=== PATIENT | female | born 2005 | race Caucasian/White ===

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

== ENCOUNTER 2024-08-10 19:57 | Emergency (ER) | payer OTHER, SELFPAY ==
--- NOTE | ~2024-08-10 | XR_ITS ---
XR ankle RT min 3V Ordering provider: Dinorah Rand History: . injury . Comparison: Clinical correlation None. FINDINGS: BONES: No acute fracture or dislocation. JOINT SPACES: Normal. SOFT TISSUES: Normal. IMPRESSION: No acute osseous abnormality of the right ankle. Reviewed, dictated and finalized at location A.
--- NOTE | 2024-08-10 21:34 | ED.LOWEXIN ---
HPI - Extremity Injury (Lower) General Chief Complaint: Extremity Injury, Lower Stated Complaint: right ankle injury Time Seen by Provider: 08/10/24 21:07 Source: patient Mode of arrival: wheelchair Limitations: no limitations History of Present Illness HPI Narrative: This is a 18 year old female that presents to the ER after an injury to her right ankle. Reports she was flipping on a trampoline and landed on her ankle wrong and it rolled. Reports she is unable to bear weight. Reports decreased ROM. Denies numbness. Related Data Home Medications Medication Instructions Recorded Confirmed No Home Medications 07/14/24 07/14/24 Allergies Allergy/AdvReac Type Severity Reaction Status Date / Time sulfamethoxazole Allergy Intermediate HIVES Verified 08/10/24 19:59 trimethoprim Allergy Intermediate HIVES Verified 08/10/24 19:59 Review of Systems Review of Systems: CONSTITUTIONAL: Denies fever MUSCULOSKELETAL: Reports joint pain, and myalgia. NEUROLOGIC: Denies numbness, or weakness. All systems reviewed & are unremarkable except as noted in HPI and below PMFSH Past Medical History Medical History Asthma Mood disorder Surgical History Surgical History History of adenoidectomy History of placement of ear tubes Social History Social History (Updated 07/14/24 @ 14:41 by Ying Perez MA) Smoking status: Never smoker Alcohol intake: never Substance use: never Substance use type: does not use Living arrangements: with family Gender identity (if verbalized by the patient): Female Exam Narrative: GENERAL: Well-appearing, well-nourished, and in no acute distress. HEAD: Normocephalic, atraumatic. EYES: EOMI. EXTREMITIES: Decreased active ROM in the ankle due to pain. Mild edema. Normal DP pulse. Normal sensation. SKIN: Warm, dry, no rash. NEURO: No focal deficits. Alert and oriented x3. PSYCH: Normal mood and affect Course Course Emergency Course: Patient updated on workup and agrees with plan of care Procedures Orthopedic Splinting/Casting Injury #1: Splinting/Casting Date: 08/10/24 Splinting/Casting Time: 21:41 Side: right Lower Extremity Injury Location: ankle Lower Extremity Immobilizer: Lincoln wrap Pre-Procedure Neuro Vascular Exam: normal Post-Procedure Neuro Vascular Exam: normal Other Orthopedic Equipment: crutches MDM - Extremity Injury (Lower) MDM Narrative Medical decision making narrative: Patient presents to the ER for right ankle injury sustained just prior to arrival. She is neurovascularly intact. Right ankle x-ray without acute osseous abnormalities. Patient placed in LINCOLN wrap and given crutches. She is to follow up with PCP. She was given warnings to return to the ER Differential Diagnosis Differential diagnosis: Likely ankle sprain and strain and ankle fracture Imaging Data Radiologist's impression: ITS Impressions Ankle X-Ray 08/10/24 21:03 IMPRESSION: No acute osseous abnormality of the right ankle. Critical Care Time Critical Care Time Critical Care Time: No Discharge Plan Discharge Clinical Impression: Ankle sprain Qualifiers: Encounter type: initial encounter Involved ligament of ankle: unspecified ligament Laterality: right Qualified Code(s): S93.401A - Sprain of unspecified ligament of right ankle, initial encounter Patient Disposition: Home, Self-Care Condition: Stable Instructions: Ankle Sprain (ED) Additional Instructions: Return to the ER if you experience fever, redness and swelling of your extremity, numbness or any other symptoms that are concerning to you Wear LINCOLN wrap and use crutches. No weight on the affected leg until able to bear weight without pain. Ice and elevate extremity. Pain medication as needed and directed. Follow u
[2024-08-10 21:45] VITALS: BP 124/68; PULSE 74; RESP 16; TEMP 36.6; O2SAT 98
== END 2024-08-10 21:47 | disposition home or self-care (01) ==
PROVIDERS: Emergency Provider Physician Assistant; PCP Family Medicine
DX: S93.401A Sprain of unspecified ligament of right ankle, initial encounter (principal); X50.0XXA Overexertion from strenuous movement or load, initial encounter
CPT/HCPCS: 73610; 99283

== ENCOUNTER 2024-09-23 14:15 | Outpatient (CLI) | payer OTHER, SELFPAY ==
--- NOTE | ~2024-09-23 | XR_ITS ---
EXAMINATION: XR ankle RT min 3V DATE: 09/23/2024 14:31 INDICATION: Right ankle pain. TECHNIQUE: 4 views of right ankle were obtained. COMPARISON: Right ankle radiographs 08/10/2024 FINDINGS: Alignment is normal. No fracture. There is mild osteoarthritis of talonavicular joint. IMPRESSION: 1. Mild osteoarthritis of talonavicular joint. Reviewed, dictated and finalized at location B.
== END 2024-09-23 14:16 | disposition home or self-care (01) ==
PROVIDERS: PCP Family Medicine; Visit Provider Family Medicine
DX: M19.071 Primary osteoarthritis, right ankle and foot (principal)
CPT/HCPCS: 73610

== ENCOUNTER 2025-01-27 17:15 | Emergency (ER) | payer OTHER, SELFPAY ==
--- NOTE | ~2025-01-27 | XR_ITS ---
EXAMINATION: XR chest 2V DATE: 01/27/2025 18:17 INDICATION: Cough. TECHNIQUE: Frontal and lateral views of the chest were obtained. COMPARISON: Chest 2 views 10/01/2022 FINDINGS: There is no pneumonia, pleural effusion, or pneumothorax. The heart size is normal. IMPRESSION: 1. No acute cardiopulmonary disease. Reviewed, dictated and finalized at location A. NIC TECHNICIAN
[2025-01-27 17:16] VITALS: BP 121/79; PULSE 68; RESP 16; TEMP 36.6; O2SAT 100
--- NOTE | 2025-01-27 18:00 | ECG_ITS ---
Test Date: 2025-01-27 18:27:46 Measurements Intervals [place] Rate: 70 P: 18 NM: 132 QRS: 58 QRSD: 102 T: 46 QT: 383 QTc: 414 Interpretive Statements SINUS RHYTHM INCOMPLETE RIGHT BUNDLE BRANCH BLOCK No previous ECG available for comparison Electronically Signed On 01-28-2025 13:12:05 [employer]BRUSH PAINTER by Jannette Owens M.D.
--- NOTE | 2025-01-27 18:01 | ED_ITS ---
HPI - URI/Sore Throat General Chief Complaint: Upper Respiratory Infection Stated Complaint: cough Time Seen by Provider: 01/27/25 17:55 History of Present Illness HPI Narrative: Pt presents with cough and runny nose. Pt says she had symptoms for weeks but seemed to be better then this morning had coughing spell and felt pressure on her chest and tightness and since she is going to [place] thought she should get checked out. Pt is afebrile. Related Data Allergies Allergy/AdvReac Type Severity Reaction Status Date / Time sulfamethoxazole Allergy Intermediate HIVES Verified 01/15/25 11:04 trimethoprim Allergy Intermediate HIVES Verified 01/15/25 11:04 Review of Systems Review of Systems: All systems reviewed & are unremarkable except as noted in HPI and below PMFSH Past Medical History Medical History Asthma Mood disorder Surgical History Surgical History History of placement of ear tubes History of adenoidectomy Social History Social History (Updated 01/15/25 @ 11:08 by Ivy Marley) Social History: Single Smoking status: Never smoker Second hand tobacco smoke exposure: No Alcohol intake: never Substance use: never Substance use type: does not use Do You Feel Safe in your Home?: Yes Lack of Transportation: No Lack of Food: Never True Current Housing: I Have Housing Concerned About Future Housing: No Difficulty Paying Gas/Electric Bills: No Difficulty Paying for Meds: No Currently Unemployed: No Education: Don't Know Difficulty w/ Childcare or Family Care: No Living arrangements: with family Occupation/Education: occupation 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 Gender identity (if verbalized by the patient): Female Exam 2 Const: General: healthy appearing and no acute distress Nutritional Appearance: well nourished Orientation/consciousness: patient oriented x3 Limitations: no limitations HENMT: Mouth: Yes Normal oral and palatal mucosa present Eyes: Conjunctivae: conjunctivae normal Neck: Neck: normal visual inspection Chest: Chest palpation & inspection: normal inspection of the chest Resp: Effort & Inspection: normal respiratory effort Auscultation: clear to auscultation bilaterally Cardio: Rate: regular rate Rhythm: regular rhythm GI: GI Palp: Yes Soft to palpation and No Tenderness to palpation present (GI) Auscultation: normal bowel sounds Skin: General skin exam: normal color Rashes: no rashes Wounds: no wounds Neuro: General: patient oriented x3, moves all extremities, no meningeal signs and CN's II-XI intact bilaterally Speech: normal speech Extrem: General: normal to inspection and no clubbing, cyanosis or edema Psych: Mental Status: mental status grossly normal Affect: normal affect Attitude: cooperative Course Vital Signs Vital signs: Vital Signs Temperature 97.8 F 01/27/25 17:16 Pulse Rate 68 01/27/25 17:16 Respiratory Rate 16 01/27/25 17:16 Blood Pressure 121/79 01/27/25 17:16 Pulse Oximetry 100 01/27/25 17:16 Temperature 97.8 F 01/27/25 17:16 Pulse Rate 68 01/27/25 17:16 Respiratory Rate 16 01/27/25 17:16 Blood Pressure 121/79 01/27/25 17:16 Pulse Oximetry 100 01/27/25 17:16 MDM - URI/Sore Throat MDM Narrative Medical decision making narrative: pt had cough for weeks and had pressure after coughing spell this am. lungs clear but will get cxr to rule out pneum or pneumonia and ekg to rule out cardiac cause and swabs for flu covd and rsv. covid Lab Data Labs: Lab Results 01/27/25 Range/Units 17:35 Influenza A (RT-PCR) Negative (Negative) Influenza B (RT-PCR) Negative (Negative) RSV (RT-PCR) Negative (Negative) SARS-CoV-2 RNA (RT-PCR) Negative (Negative) Discharge Plan Discharge Clinical Impression: Bronchitis Patient Disposition: Home, Self-Care Condition: Stable Instructions: Antibiotic Form, Acute Bronchitis (ED) Patient Language: French Prescriptions: New azithromycin [Zithromax Z-Estuardo] 250 mg tablet See Rx Instructions .ROUTE .COMPLEX Qty: 6 0RF Rx Instructions: For 250 mg dose pack: take 500 mg today (day 1), then 250 mg for 4 days (days 2-5) prednisone 50 mg tablet 50 mg PO DAILY Qty: 5 0RF No Action sertraline 25 mg tablet 25 mg PO DAILY Qty: 30 0RF norgestimate-ethinyl estradiol [Estarylla] 0.25-35 mg-mcg tablet 1 tablet PO DAILY Qty: 84 3RF albuterol sulfate 90 mcg/actuation HFA aerosol inhaler 1 puff INHALATION Q4-6H PRN (Reason: shortness of breath or wheezing) Qty: 6.7 0RF Follow-up/Referrals: Elroy Horn MD [Primary Care Provider] -
[2025-01-27 18:17] LABS: Influenza A QL RT-PCR Negative (Negative); Influenza B QL RT-PCR Negative (Negative); RSV RNA, RT-PCR Negative (Negative); SARS-CoV-2 RNA PCR Negative (Negative)
--- OUTSIDE RECORDS SUMMARY | 2025-01-27 18:30 | XMS_ITS | Clinical Summary ---
Author Organization [facility] Address [facility] [place] [address] Care Team Providers Care Skiving Machine Operator Name Role Phone Gigi Quiñonez MD Primary Care Provider [phone]- [phone] Allergies Active Allergy Reactions Criticality Noted Date Comments Sulfamethoxazole-Trimethoprim Rash Low 2018 Medications No known medications Social History Tobacco Use Types Packs/Day Years Used Date Smoking Tobacco: Never Smokeless Tobacco: Never Alcohol Use Standard Drinks/Week Comments No 0 (1 standard drink = 0.6 oz pur e alcohol) AUDIT-C Answer Date Recorded Frequency of Alcohol Consumption Never 07/28/2019 Average Number of Drinks Not on file Frequency of Binge Drinking Not on file 12/2018 Comments No Sex and Gender Information Value Date Recorded Sex Assigned at Not on file Legal Sex Female 10:11 AM CDT Gender Identity Not on file Sexual Orientation Not on file Last Filed Vital Signs Vital Sign Reading Time Taken Comments Blood Pressure 110/83 07/28/2019 10:18 AM CDT Pulse 74 07/28/2019 10:18 AM CDT Temperature 37.1 C (98.7 F) 07/28/2019 10:18 AM CDT Respiratory Rate 16 07/28/2019 10:18 AM CDT Oxygen Saturation 100% 07/28/2019 10:18 AM CDT Inhaled Oxygen Concentration - - Weight 52.2 kg (115 lb) 07/28/2019 10:18 AM CDT Height 165.1 cm (5' 5 ) 07/28/2019 10:18 AM CDT Body Mass Index 19.14 07/28/2019 10:18 AM CDT Plan of Treatment Health Maintenance Due Date Last Done Comments Annual Physical 2007 HPV Vaccines (1 - 3-dose series) 2019 Meningococcal B Vaccine (1 o f 2 - Standard) 2020 Hepatitis C 2022 DTaP, Tdap and Td Vaccines ( 1 - Tdap) 2023 Hepatitis B Vaccines (1 of 3 - 19+ 3-dose series) 2023 COVID-19 Vaccine (1 - 2023-2 5 season) 2024 Influenza Adult (#1) 2024 Meningococcal Vaccine Aged Out No ingrid shawn eligible based on patient's age to complete this topic Pneumococcal Vaccine: Pediat rics (0 to 5 Years) and At-Risk Patients (6 to 64 Years) Aged Out No longer eligible b ased on patient's age to complete this topic RSV Immunizations Under 20 Months Aged Out No longer eligible based on patient's age to complete this topic Insurance Care Teams Skiving Machine Operator Relationship Specialty Start Date End Date Gigi Quiñonez MD [address] [place] [address] PCP - General PEDIATRICS 07/28/19
--- OUTSIDE RECORDS SUMMARY | 2025-01-27 18:30 | XMS_ITS | Clinical Summary ---
Author Organization [facility] Address [address] [place] [id number] Care Team Providers Care Hoister Name Role Phone Gigi Quiñonez MD Primary Care Provider [phone]- [phone] Allergies Active Allergy Reactions Criticality Noted Date Comments Sulfamethoxazole-Trimethoprim Rash Medium 2017 Medications PROAIR HFA 90 mcg/actuation inhaler 06/20/2018 Active Active Problems Problem Noted Date Diagnosed Date Bradycardia 05/05/2022 Abnormal EKG 09/03/2018 Premenstrual dysphoric syndrome 04/02/2018 Surgical History Surgery Date Site/Laterality Comments TYMPANOSTOMY TUBE PLACEMENT ADENOIDECTOMY Medical History Medical History Date Comments Asthma Family History * Patient is adopted Medical History Relation Name Comments Alcohol abuse Other Mental illness Other Seizures Other Relation Name Status Comments Other Social History Tobacco Use Types Packs/Day Years Used Date Smoking Tobacco: Never Smokeless Tobacco: Never Tobacco Cessation:Counseling Given: Not Answered Personal Safety Answer Date Recorded Getting School Help Needed Not on file 12/15 Comments Unknown Sex and Gender Information Value Date Recorded Sex Assigned at Not on file Legal Sex Female 12:39 AM DIRECTOR BANKING Gender Identity Not on file Sexual Orientation Not on file Obstetrics History Last Filed Vital Signs Vital Sign Reading Time Taken Comments Blood Pressure 106/68 12/25/2022 10:44 AM DIRECTOR BANKING Pulse 68 12/25/2022 10:44 AM DIRECTOR BANKING Temperature 36.3 C (97.3 F) 12/25/2022 10:44 AM DIRECTOR BANKING Respiratory Rate 18 09/04/2018 9:58 AM CDT Oxygen Saturation 99% 12/25/2022 10:44 AM DIRECTOR BANKING Inhaled Oxygen Concentration - - Weight 58.7 kg (129 lb 6.6 oz) 12/25/2022 10:44 AM DIRECTOR BANKING Height 164 cm (5' 4.57 ) 12/25/2022 10:44 AM DIRECTOR BANKING Body Mass Index 21.82 12/25/2022 10:44 AM DIRECTOR BANKING Plan of Treatment Health Maintenance Due Date Last Done Comments Depression Screening 2004 Hepatitis C Screening 2004 Varicella Vaccines (2 of 2 - 2-dose childhood series) 2008 12/11/2005 DTaP/Tdap/Td Vaccine (5 - Tdap) 2015 04/27/2006, 06/09/2005, 04/10/2005, Additional history exists HPV Vaccines (1 - 3-dose series) 2019 Meningococcal B Vaccine (1 of 2 - Standard) 2020 Regular Well Visit/Exam 18-64 2022 Covid-19 Vaccine ( season) 2024 07/04/2021, 06/12/2021 Influenza Vaccine (#1) 2024 08/26/2019 Hepatitis B Screening Completed 09/14/2005 , 06/09/2005, 2004 Pneumococcal vaccine <65 Completed 006, 12/11/2005, 04/10/2005, Additional history exists Meningococcal Vaccine Aged Out No ingrid shawn eligible based on patient's age to complete this topic Insurance [facility] Member Subscriber Plan / Payer (Ef fective 2018-Present) Name:Muna Blankenship Relation to Subscriber:Self Name:Muna Blankenship Payer ID:[id number] (NAIC) Group ID:[id number] Type: Address: [place] [id number] [facility] CLAIM[facility] Member Subscriber Plan / Payer ( fective 2022-Present) Name:Muna Blankenship Relation to Subscriber:Self Name:Muna Blankenship Payer ID:[id number] (NAIC) Group ID:Not on file Type: Address: [place] [id number] Care Teams Hoister Relationship Specialty Start Date End Date Gigi Quiñonez MD PCP - General 03/13/18
--- OUTSIDE RECORDS SUMMARY | 2025-01-27 18:30 | XMS_ITS | Referral Summary ---
Author Organization [facility] Address [address] [place] [address] Care Team Providers Care Pelt Dropper Name Role Phone Gigi Quiñonez MD Primary Care Provider [phone]- [phone] Allergies Active Allergy Reactions Criticality Noted Date Comments Sulfamethoxazole-Trimethoprim Rash Medium 2017 Medications PROAIR HFA 90 mcg/actuation inhaler 06/20/2018 Active Active Problems Problem Noted Date Diagnosed Date Bradycardia 05/05/2022 Abnormal EKG 09/03/2018 Premenstrual dysphoric syndrome 04/02/2018 Social History Tobacco Use Types Packs/Day Years Used Date Smoking Tobacco: Never Smokeless Tobacco: Never Tobacco Cessation:Counseling Given: Not Answered Personal Safety Answer Date Recorded Getting School Help Needed Not on file 12/15 Comments Unknown Sex and Gender Information Value Date Recorded Sex Assigned at Not on file Legal Sex Female 12:39 AM RATER ASSOCIATE Gender Identity Not on file Sexual Orientation Not on file Last Filed Vital Signs Vital Sign Reading Time Taken Comments Blood Pressure 106/68 12/25/2022 10:44 AM RATER ASSOCIATE Pulse 68 12/25/2022 10:44 AM RATER ASSOCIATE Temperature 36.3 C (97.3 F) 12/25/2022 10:44 AM RATER ASSOCIATE Respiratory Rate 18 09/04/2018 9:58 AM CDT Oxygen Saturation 99% 12/25/2022 10:44 AM RATER ASSOCIATE Inhaled Oxygen Concentration - - Weight 58.7 kg (129 lb 6.6 oz) 12/25/2022 10:44 AM RATER ASSOCIATE Height 164 cm (5' 4.57 ) 12/25/2022 10:44 AM RATER ASSOCIATE Body Mass Index 21.82 12/25/2022 10:44 AM RATER ASSOCIATE Plan of Treatment Not on file Insurance [facility] Care Teams Pelt Dropper Relationship Specialty Start Date End Date Gigi Quiñonez MD PCP - General 03/13/18
--- OUTSIDE RECORDS SUMMARY | 2025-01-27 18:31 | XMS_ITS | Referral Summary ---
Author Organization [facility] Address [address] [facility] [place] [address] Care Team Providers Care Comb Setter Name Role Phone Gigi Quiñonez MD Primary Care Provider [phone] Source Comments [facility],non-owned Affiliates and Associated Physician Practices is amultiple site organization consisting of ambulatory clinics and hospital sitesin [place], [place] and [place]. This disclosure is being madepursuant to the Care Everywhere program and may not contain all information available regarding this patient. Last updated 18.[facility] Medications * Be aware that medications may not be up to date on this document. Alwaysverify current medications with the patient. Medication Sig Dispensed Refills Start Date End Date Status XULANE 150-35 MCG/24HR patch 08/02/2021 Active Active Problems Problem Noted Date Diagnosed Date Abnormal EKG 09/03/2018 Bradycardia Social History Tobacco Use Types Packs/Day Years Used Date Smoking Tobacco: Never Assessed Sex and Gender Information Value Date Recorded Sex Assigned at Not on file Gender Identity Not on file Sexual Orientation Not on file Plan of Treatment Not on file Care Teams Comb Setter Relationship Specialty Start Date End Date Gigi Quiñonez MD [address] [facility] [address] [place] [address] PCP - General Pediatrics 08/08/18
--- OUTSIDE RECORDS SUMMARY | 2025-01-27 18:31 | XMS_ITS | Clinical Summary ---
Author Organization [facility] Address [address] [facility] [place] [address] Care Team Providers Care Post Splitter Name Role Phone Gigi Quiñonez MD Primary Care Provider Source Comments [facility],non-owned Affiliates and Associated Physician Practices is amultiple site organization consisting of ambulatory clinics and hospital sitesin [place], [place], [place] and [place]. This disclosure is being madepursuant to the Care Everywhere program and may not contain all information available regarding this patient. Last updated 18.[facility] Medications * Be aware that medications may [...] Orientation Not on file Plan of Treatment Health Maintenance Due Date Last Done Comments HIV SCREENING 2019 HPV VACCINE (1 - 3-dose series) 2019 CHLAMYDIA/GONORRHEA SCREENING 2020 MENINGOCOCCAL (Group B) VACC INE (1 of 2 - Standard) 2020 HEPATITIS C SCREENING 12/06/2022 DTAP/TDAP/TD VACCINES (1 - Tdap) 2023 HEPATITIS B VACCINE (1 of 3 - 19+ 3-dose series) 2023 COVID-19 VACCINE (1 - 2023-2 5 season) 2024 INFLUENZA VACCINE (#1) 2024 DEPRESSION SCREENING 11/26/2024 ZOSTER VACCINE (1 of 2) 2054 HIB VACCINE Aged Out No longer eligi ble based on patient's age to complete this topic MENINGOCOCCAL VACCINE Aged Out No ingrid shawn eligible based on patient's age to complete this topic PNEUMOCOCCAL VACCINE Aged Out No long er eligible based on patient's age to complete this topic Care Teams Post Splitter Relationship Specialty Start Date End Date Gigi Quiñonez MD [address] [place], [place] [id number] PCP - General Pediatrics 08/08/18
--- OUTSIDE RECORDS SUMMARY | 2025-01-27 18:31 | XMS_ITS | Patient Health Summary ---
Author Organization [facility] Address [address] [place] [address] Care Team Providers Care School Business Administrator Name Role Phone Gigi Quiñonez MD Primary Care Provider [phone] Note from [facility],non-owned Affiliates and Associated Physician Practices is amultiple site organization consisting of ambulatory clinics and hospital sitesin [place], [place], [place] and [place]. This disclosure is being madepursuant to the Care Everywhere program and may not contain all information available regarding this patient. Last updated 18.[facility] Medications * Be aware that medications may not be up to date on this document. Alwaysverify current medications with the patient. * XULANE 150-35 MCG/24HR patch(Started 08/02/2021) Active Problems Problem Noted Date Diagnosed Date Abnormal EKG 09/03/2018 Bradycardia Social History Tobacco Use Types Packs/Day Years Used Date Smoking Tobacco: Never Assessed Sex and Gender Information Value Date Recorded Sex Assigned at Not on file Gender Identity Not on file Sexual Orientation Not on file Care Teams School Business Administrator Relationship Specialty Start Date End Date Gigi Quiñonez MD [address] [address] PCP - General Pediatrics 08/08/18
--- OUTSIDE RECORDS SUMMARY | 2025-01-27 18:31 | XMS_ITS | Continuity of Care Document ---
Author Organization [facility] Address [address] [facility] [address] [place] [address] Phone Care Team Providers Care End Touching Machine Operator Name Role Phone Ruba Daniels OT Unavailable Unavailable Procedures Procedure Date Therapeutic Activities Neuromuscular Re-Ed Hot or Cold Pack Therapeutic Activities Neuromuscular Re-Ed Therapeutic Activities Neuromuscular Re-Ed Therapeutic Exercise Hot or Cold Pack Manual Therapy Therapeutic Activities Neuromuscular Re-Ed Hot or Cold Pack Manual Therapy Therapeutic Activities Neuromuscular Re-Ed Hot or Cold Pack Manual Therapy Therapeutic Activities OT Evaluation Low Complexity Manual Therapy Therapeutic Exercise Hot or Cold Pack Advance Directives Directive Yes / No Effective Date File Name No Information Encounters Encounter Description Practice Location Reason(s) For Visit Diagnoses Date Provider Providers Copied on Encounter [facility] [employer] [address], [place], [place], [id number], tel:[phone] [place] No Information Jeremiah Yeh. . [facility], [place], [place], [id number], [place] tel:[phone] [place] No Information Jun-2 2 Harig Ruba. . Referring Provider: Drake Vazquez, [address] [facility] [address] [address], [place], [address]. tel:[phone] [facility], [address], [place], [place], [id number], [place] tel:[phone] [place] No Information 2 Harig Ruba. . Referring Provider: Drake Nicolas, [address] [facility] [address] [facility], [place], [address]. tel:[phone] [facility], [address], [place], [place], [id number], [place] tel:[phone] [place] No Information Jun- 2 Harig Ruba. . Referring Provider: Drake Vazquez, [address] [facility] [facility] [address] [address], [place], [address]. tel:[phone] [facility], [address], [place], [place], [id number], [place] tel:[phone] [place] No Information Aug-0 2 Harig Ruba. . Referring Provider: Drake Vazquez, [address] [facility] [address], [place], [address]. tel:[phone] [facility], [place], [place], [id number], [place] tel:[phone] [place] No Information Aug-0 2 Harig Ruba. . Referring Provider: Drake Vazquez, [address] [facility] [facility] [address], [place], [address]. tel:[phone] [facility], [address], [place], [place], [id number], [place] tel:[phone] [place] No Information Aug-0 2 Harig Ruba. . Referring Provider: Drake Vazquez, [address] [place] [address] [address], [place], [address]. tel:[phone] Family History Family Member Type Diagnosis Age At Onset No Information Payers Payer name Insurance type Covered green party ID Authoriza tion(s) No Information Social History Type Description Quantity Date Captured Comments Sex Female Smoking Status No Information Chief Complaint And Reason For Visit No Information Reason For Referral Reason For Referral No Information History Of Present Illness Encounter Date Complaint History Of Prese nt Illness No Information Functional Status Date Functional Assessmen t No Information Instructions Date Instruction Additional Infor mation No Information Assessments Type Assessment Date No Information Patient Care Teams Name Effective Dates (start - stop) Status Members No Information
--- OUTSIDE RECORDS SUMMARY | 2025-01-27 18:31 | XMS_ITS | Continuity of Care Document ---
Author Name [facility] Organization [facility] Care Team Providers Care Explosive Technician Name Role Phone [facility] Unavailable Unavailable Medications Combined list of outpatient medications from Department of Defense and Veterans Affairs facilities.Medications provided include 1) outpatient medications from the last 15 months, and 2) patient-reported medications. Medication Details Route Status Patient Instructions Prescription Expires Prescription Number Last Dispense Date Ordering Provider Order Date Order Qty Source CEPHALEXIN (CEPHALEXIN MONOHYDRATE ), 500MG, CAPSULE, ORAL, [place], 500 ea. BOTTLE Active [id number] 2023 20 Pharmac y Data Transac tion Service Facilit y CEPHALEXIN (CEPHALEXIN MONOHYDRATE ), 500MG, CAPSULE, ORAL, TEVA [place], 500 ea. BOTTLE Active [id number] 2023 20 Pharmac y Data Transac tion Service Facilit y FLUTICASONE -SALMETEROL HFA (fluticason e propionate/ salmeterol xinafoate), 115-21MCG, HFA AER AD, INHALATION, [facility], 12 g CANISTER Cancele d [id number] : 2023 0 Pharmac y Data Transac tion Service Facilit y FLUTICASONE -SALMETEROL HFA (fluticason e propionate/ salmeterol xinafoate), 45-21 MCG, HFA AER AD, INHALATION, [facility], 12 g CANISTER Cancele d [id number] : 2023 0 Pharmac y Data Transac tion Service Facilit y norgestimat e-ethinyl estradiol 0.25 mg-35 mcg oral tablet 1 tab(s), Oral, Daily, # 84 tab(s), 3 total refill(s ), Lisseth ilinez, Pharmacy : [facility] Oral (given by mouth) Ordered 2022 84.0 [id number] [facility] Allergies, Adverse Reactions, Alerts Combined list of allergies from Department of [facility] and Veterans Affairs facilities. It does not include entries that were removed or entered in error. Substance Category Reaction Severity Reaction type Status Date Reported Comments Source BACTRIM (SULFAMETH OXAZOLE/TR IMETHOPRIM ) Drug allergy (disorder) Rash or Itch active [address] [place] [address]) sulfametho xazole-tri methoprim Propensity to adverse reactions to drug Rash or Itch Active 3 Unknown Organization Immunizations Combined list of available immunizations from the Department of Defense and Veterans Affairs facilities. Immunization Series Date Given Administered By Site Reaction Lot Number CVX Code Drug Dress Draper Status Comments Source COVID-19, mRNA, LNP-S, PF, 30 mcg/0.3 mL dose 2020 [employer] [place] (PFR) Not Given COVID-19, mRNA, LNP-S, PF, 30 mcg/0.[address] [facility] COVID-19, mRNA, LNP-S, PF, 30 mcg/0.3 mL dose 2020 [employer]UL, [employer] [place] (PFR) Not Given COVID-19, mRNA, LNP-S, PF, 30 mcg/0.[address] [facility] Encounters Combined list of: 1) Encounters from Department of Veterans Affairs facilities going backup to the last 18 months, not all [place] inpatient encounters are included; 2) Encounters from the Department of [facility] facilities going backup to 280 months. Location Location Details Encounter Type Encounter Number Reason For Visit Attending Provider ADM Date DC Date Status Disposition Source [address] [place] [address] Kael [facility]Pad Cutter ecology) OUTPATIENT [id number] Pas entered the order/ cycle issues and vaginal pain [phone] ELENA PANDA 01/01 Released w/o Limitations [address] [place] [address] Kael Heriberto [facility]G ynecolo gy) [address] [place] [address] Kael [facility])(Pad Cutter ecology) OUTPATIENT [id number] D[facility] lab results ELENA PANDA 01/25 Released w/o Limitations [address] [place] [address] Kael [facility])(G ynecolo gy) Procedures Combined list of: 1) Procedures from Department of Veterans Affairs facilities going back up to thelast 18 months, not all VA non-surgical procedures are included; 2) All procedures from the Department of Defense facilities. Procedure Procedure Type Code Date Perfomer Comments Sourc e No data available for this section Ambulatory P harmacy Social History Combined list of available smoking, tobacco, and other social history from Department of Defense and Veterans Affairs facilities. Social History Type Response Date Comment Sourc e Sexual Orientation Ambula tory Pharmacy Gender identity Ambulator y Pharmacy Sex Representation Female Unknow n Organization This section is an empty soc ial history section. DoD Assessment and Plan Combined list of future care activities from Department of Defense and Veterans Affairs facilities (e.g., assessment and plan notes, appointments, orders, and referrals). Additional future care activities may be listed in the Plan of Care section. Result Assessment and Plan Date Source Assessment and Plan Extracted from:Title : [facility] Note Author: ELENA PANDA, DO Date: 06/14/23 1. P COS- polycystic ovary syndrome Discussed with patient and her mother probably mild diagnosis of PCOS due to elevated testosterone level and oligomenorrhea. Discussed again treatment options and patient opting for OCP. Discussed bleeding patterns with OCP and continuous vs typical use. Discussed breakthrough spotting if days missed and only effective contraception with consistent use. Patient has previously used OCP and has no contraindications. Seek attention for any chest pains, shortness of breath, leg swelling/pain/redness. F/U in about 6 months for progress/continuation of plan. 01/28/2025 [id number] Functional Status Combined list of recent functional and cognitive assessments recorded at Department of Defense and Veterans Affairs ([place]).VA Functional [place] Measurement (FIM) Scale: 1 = Total Assistance (Subject = 0% +), 2 = Maximal Assistance (Subject = 25% +), 3 = Moderate Assistance (Subject = 50% +), 4 = Minimal Assistance (Subject = 75% +), 5 = Supervision, 6 = Modified [place] (Device), 7 = Complete [place] (Timely, Safely). Assessment Date/Time Source Assessment Type Assessment Skill Assessment Score Assessment Details No data available for this section
--- OUTSIDE RECORDS SUMMARY | 2025-01-27 18:42 | XMS_ITS | Continuity of Care Document ---
Author Organization [facility] Address [address] [place] [address] Phone Care Team Providers Care Portfolio Management Marketing Name Role Phone Ruba Daniels OT Unavailable Unavailable Procedures Procedure Date Therapeutic Activities Neuromuscular Re-Ed Hot or Cold Pack Therapeutic Activities Neuromuscular Re-Ed Neuromuscular Re-Ed Therapeutic Activities Manual Therapy Therapeutic Exercise Hot or Cold Pack Neuromuscular Re-Ed Therapeutic Activities Manual Therapy Hot or Cold Pack Therapeutic Activities Neuromuscular Re-Ed Hot or Cold Pack Manual Therapy OT Evaluation Low Complexity Therapeutic Activities Therapeutic Exercise Hot or Cold Pack Manual Therapy Advance Directives Directive Yes / No Effective Date File Name No Information Encounters Encounter Description Practice Location Reason(s) For Visit Diagnoses Date Provider Providers Copied on Encounter [facility], [place], [place], [id number], tel:[phone] [place] No Information Jeremiah Yeh. . [facility], [place], [place], [id number], [place] tel:[phone] [place] No Information Jun-2 2 Harig Ruba. . Referring Provider: Drake Vazquez, [address], [place], [address]. tel:[phone] [facility], [address], [place], [place], [id number], [place] tel:[phone] [place] No Information 2 Harig Ruba. . Referring Provider: Drake Nicolas, [address] [facility] [address] [facility], [place], [address]. tel:[phone] [facility], [address], [place], [place], [id number], [place] tel:[phone] [place] No Information Jun- 2 Harig Ruba. . Referring Provider: Drake Vazquez, [address], [place], [address]. tel:[phone] [facility], [address], [place], [place], [id number], [place] tel:[phone] [place] No Information Aug-0 2 Harig Ruba. . Referring Provider: Drake Vazquez, [address], [place], [address]. tel:[phone] [facility], [place], [place], [id number], [place] tel:[phone] [place] No Information Aug-0 2 Harig Ruba. . Referring Provider: Drake Vazquez, [address], [place], [address]. tel:[phone] [facility], [address], [place], [place], [id number], [place] tel:[phone] [place] No Information Aug-0 2 Harig Ruba. . Referring Provider: Drake Vazquez, [address] [place] [address] [address], [place], [address]. tel:[phone] Family History Family Member Type Diagnosis Age At Onset No Information Payers Payer name Insurance type Covered libertarian ID Authoriza tion(s) No Information Social History [...]
--- OUTSIDE RECORDS SUMMARY | 2025-01-27 18:42 | XMS_ITS | Continuity of Care Document ---
Author Name [facility] Organization [facility] Care Team Providers Care Cut Off Saw Grader Name Role Phone [facility] Unavailable Unavailable Medications Combined list of outpatient medications from Department of Defense and Veterans Affairs facilities.Medications provided include 1) outpatient medications from the last 15 months, and 2) patient-reported medications. Medication Details Route Status Patient Instructions Prescription Expires Prescription Number Last Dispense Date Ordering Provider Order Date Order Qty Source CEPHALEXIN (CEPHALEXIN MONOHYDRATE ), 500MG, CAPSULE, ORAL, TEVA [place], 500 ea. BOTTLE Active [id number] 2023 20 Pharmac y Data Transac tion Service Facilit y CEPHALEXIN (CEPHALEXIN MONOHYDRATE ), 500MG, CAPSULE, ORAL, TEVA [place], 500 ea. BOTTLE Active [id number] 2023 20 Pharmac y Data Transac tion Service Facilit y FLUTICASONE -SALMETEROL HFA (fluticason e propionate/ salmeterol xinafoate), 115-21MCG, HFA AER AD, INHALATION, [facility], 12 g CANISTER Cancele d [id number] : 2023 0 Pharmac y Data Transac tion Service Facilit y FLUTICASONE -SALMETEROL HFA (fluticason e propionate/ salmeterol xinafoate), 45-21 MCG, HFA AER AD, INHALATION, [facility], 12 g CANISTER Cancele d [id number] : 2023 0 Pharmac y Data Transac tion Service Facilit y norgestimat e-ethinyl estradiol 0.25 mg-35 mcg oral tablet 1 tab(s), Oral, Daily, # 84 tab(s), 3 total refill(s ), Lisseth wainez, Pharmacy : [facility] Oral (given by mouth) Ordered 2022 84.0 0055C-3 [address] [facility] Allergies, Adverse Reactions, Alerts Combined list of allergies from Department of [facility] and Veterans Affairs facilities. It does not include entries that were removed or entered in error. Substance Category Reaction Severity Reaction type Status Date Reported Comments Source BACTRIM (SULFAMETH OXAZOLE/TR IMETHOPRIM ) Drug allergy (disorder) Rash or Itch active [address] [place] [address]) sulfametho xazole-tri methoprim Propensity to adverse reactions to drug Rash or Itch Active 3 Unknown Organization Immunizations Combined list of available immunizations from the Department of Defense and Veterans Affairs facilities. Immunization Series Date Given Administered By Site Reaction Lot Number CVX Code Drug Orchestrator Status Comments Source COVID-19, mRNA, LNP-S, PF, 30 mcg/0.3 mL dose 2020 [employer] [place] [place] (PFR) Not Given COVID-19, mRNA, LNP-S, PF, 30 mcg/0.3 mL dose [facility] COVID-19, mRNA, LNP-S, PF, 30 mcg/0.3 mL dose 2020 ALUL, [employer] [place] (PFR) Not Given COVID-19, mRNA, LNP-S, PF, 30 mcg/0.3 mL dose [facility] Encounters Combined list of: 1) Encounters from Department of Veterans Affairs facilities going backup to the last 18 months, not all [place] inpatient encounters are included; 2) Encounters from the Department of [facility] facilities going backup to 280 months. Location Location Details Encounter Type Encounter Number Reason For Visit Attending Provider ADM Date DC Date Status Disposition Source [address] [place] [address] Kael [facility])(Juice Standardizer ecology) OUTPATIENT [id number] 1 Pas entered the order/ cycle issues and vaginal pain ELENA PANDA 01/01 Released w/o Limitations [address] [place] [address] Kael Heriberto [facility]G ynecolo gy) [address] [place] [address] Kael [facility])(Juice Standardizer ecology) OUTPATIENT [id number] Discuss lab results ELENA PANDA 01/25 Released w/o Limitations [address] [place] [address] Kael [facility])(G ynecolo gy) Procedures Combined list of: 1) [...] Assessment and Plan Extracted from:Title : [facility] Note Author: ELENA PANDA, DO [...] 6 months for progress/continuation of plan. 01/28/2025 [id number] Functional Status Combined list of recent functional and cognitive assessments recorded at Department of Defense and [place] Affairs ([place]).[place] Functional [place] Measurement (FIM) Scale: 1 = Total Assistance (Subject = 0% +), 2 = Maximal Assistance (Subject = 25% +), 3 = Moderate Assistance (Subject = 50% +), 4 = Minimal Assistance (Subject = 75% +), 5 = Supervision, 6 = Modified [place] (Device), 7 = Complete [place] (Timely, Safely). Assessment Date/Time Source Assessment Type Assessment Skill Assessment Score Assessment Details No data available for this section
[2025-01-27 18:57] VITALS: BP 117/72; PULSE 66; RESP 16; TEMP 36.6; O2SAT 98
== END 2025-01-27 19:07 | disposition home or self-care (01) ==
PROVIDERS: Emergency Medicine; Emergency Provider Emergency Medicine; PCP Family Medicine
DX: J40 Bronchitis, not specified as acute or chronic (principal); Z20.822 Contact with and (suspected) exposure to COVID-19
CPT/HCPCS: 71046; 87637; 93005; 99283

== ENCOUNTER 2025-07-26 14:18 | Emergency (ER) | payer OTHER, SELFPAY ==
--- NOTE | ~2025-07-26 | XR_ITS ---
EXAMINATION: XR chest 2V DATE: 07/26/2025 20:38 INDICATION: Upper respiratory tract infection with cough and fever TECHNIQUE: PA and lateral views of the chest were obtained. COMPARISON: Chest radiograph dated 01/27/2025 FINDINGS: The lungs are clear with no focal airspace opacities, pulmonary edema, pleural effusion or pneumothorax. The cardiomediastinal silhouette is normal. Visualized bones and soft tissues are unremarkable. IMPRESSION: 1. No acute cardiopulmonary disease. Reviewed, dictated and finalized at location A.
--- OUTSIDE RECORDS SUMMARY | 2025-07-26 14:19 | XMS_ITS | Continuity of Care Document ---
Author Name [facility] Organization [facility] Care Team Providers Care Brick Shader Name Role Phone [facility] Unavailable Unavailable Medications Combined list of outpatient medications from Department of [facility] and Veterans [facility] facilities.Medications provided include 1) outpatient medications from the last 15 months, and 2) patient-reported medications. Medication Details Route Status Patient Instructions Prescription Expires Prescription Number Last Dispense Date Ordering Provider Order Date Order Qty Source norgestimat e-ethinyl estradiol 0.25 mg-35 mcg oral tablet 1 tab(s), Oral, Daily, # 84 tab(s), 3 total refill(s ), Liss[facility], Pharmacy : [facility] Oral (given by mouth) Ordered 2022 84.0 0055C-[address] [place] [address] Allergies, Adverse Reactions, Alerts Combined list of allergies from Department [facility] and Veterans [facility] facilities. It does not include entries that were removed or entered in error. Substance Category Reaction Severity Reaction type Status Date Reported Comments Source BACTRIM (SULFAMETH OXAZOLE/TR IMETHOPRIM ) Drug allergy (disorder) Rash or Itch active 3 [facility] [employer] ([facility]) sulfametho xazole-tri methoprim Propensity to adverse reactions to drug Rash or Itch Active 3 Unknown Organization Immunizations Combined list of available immunizations from the Department of Defense and Veterans Affairs facilities. Immunization Series Date Given Administered By Site Reaction Lot Number CVX Code Drug Net Developer Status Comments Source COVID-19, mRNA, LNP-S, PF, 30 mcg/0.3 mL dose 2020 [employer] [place] (PFR) Not Given COVID-19, mRNA, LNP-S, PF, 30 mcg/0.3 mL dose [facility] COVID-19, mRNA, LNP-S, PF, 30 mcg/0.3 mL dose 2020 [employer] [place] (PFR) Not Given COVID-19, mRNA, LNP-S, PF, 30 mcg/0.3 mL dose [facility] Encounters Combined list of: 1) Encounters from Department of [facility] facilities going backup to the last 18 months, not all [place] inpatient encounters are included; 2) Encounters from the [facility] facilities going backup to 280 months. Location Location Details Encounter Type Encounter Number Reason For Visit Attending Provider ADM Date DC Date Status Disposition Source [address] [place] [address] Kael [facility] ([facility])(Electronic Engineering Draftsperson ecology) OUTPATIENT [id number] 1 Pas entered the order/ cycle issues and vaginal pain ELENA PANDA 01/01 Released w/o Limitations [address] [place] [address] [employer] ([facility])(G ynecolo gy) [address] [place] [address] [employer] ([facility])(Electronic Engineering Draftsperson ecology) OUTPATIENT [id number] ROGELIO WILLIAMSON Discuss lab results ELENA PANDA 01/25 Released w/o Limitations [address] [place] [address] [employer] ([facility])(G ynecolo gy) Procedures Combined list of: 1) Procedures from Department of [facility] facilities going back up to thelast 18 months, not all [place] non-surgical procedures are included; 2) All procedures from the [facility] facilities. Procedure Procedure Type Code Date Perfomer Comments Sourc e No data available for this section Ambulatory P harmacy Social History Combined list of available smoking, tobacco, and other social history from Department of [facility] and Veterans [facility] facilities. Social History Type Response Date Comment Sourc e Sexual Orientation Ambula tory Pharmacy Gender identity Ambulator y Pharmacy Sex Representation Female (finding) Unknown Organization This section is an empty soc ial history section. DoD Assessment and Plan Combined list of future care activities from Department of [facility] and Veterans Affairs facilities (e.g., assessment and plan notes, appointments, orders, and referrals). Additional future care activities may be listed in the Plan of Care section. Result Assessment and Plan Date Source Assessment and Plan Extracted from:Title : [facility] Note Author: ELENA PANDA DO Date: 06/14/23 1. P COS- polycystic [...] about 6 months for progress/continuation of plan. 07/26/2025 [id number] [facility] Functional Status Combined list of recent functional and cognitive assessments recorded at Department of Defense and Veterans Affairs (VA).VA Functional [place] Measurement (FIM) Scale: 1 = Total Assistance (Subject = 0% +), 2 = Maximal Assistance (Subject = 25% +), 3 = Moderate Assistance (Subject = 50% +), 4 = Minimal Assistance (Subject = 75% +), 5 = Supervision, 6 = Modified [place] (Device), 7 = Complete [place] (Timely, Safely). Assessment Date/Time Source Assessment Type Assessment Skill Assessment Score Assessment Details No data available for this section
--- OUTSIDE RECORDS SUMMARY | 2025-07-26 14:20 | XMS_ITS | Clinical Summary ---
Author Organization [facility] Address [facility] [place] [address] Care Team Providers Care Party Plan Salesperson Name Role Phone Gigi Quiñonez MD Primary Care Provider [phone] Allergies Active Allergy Reactions Criticality Noted Date [...] 10:18 AM CDT Height 165.1 cm (5' 5) 07/28/2019 10:18 AM CDT Body Mass Index [...] Vaccine (1 - 2023-2 5 season) 2024 Meningococcal Vaccine Aged Out No ingrid shawn eligible based on patient's age to complete this topic Pneumococcal Vaccine: Pediat rics (0 to 5 Years) and At-Risk Patients (6 to 49 Years) Aged Out No longer eligible b ased on patient's age to complete this topic RSV Immunizations Under 20 Months Aged Out No longer eligible based on patient's age to complete this topic Insurance [facility] Care Teams Party Plan Salesperson Relationship Specialty Start Date End Date Gigi Quiñonez MD [address] [place] [address] PCP - General PEDIATRICS 07/28/19
--- OUTSIDE RECORDS SUMMARY | 2025-07-26 14:20 | XMS_ITS | Clinical Summary ---
Author Organization [facility] Address [address] [place] [address] Care Team Providers Care Edger Liner Name Role Phone Gigi Quiñonez MD Primary Care Provider +1- [phone] Allergies Active Allergy Reactions Criticality Noted Date [...] on file Legal Sex Female 12:39 AM INSURANCE ANALYST Gender Identity Not on file Sexual Orientation Not on file Obstetrics History Last Filed Vital Signs Vital Sign Reading Time Taken Comments Blood Pressure 106/68 12/25/2022 10:44 AM INSURANCE ANALYST Pulse 68 12/25/2022 10:44 AM INSURANCE ANALYST Temperature 36.3 C (97.3 F) 12/25/2022 10:44 AM INSURANCE ANALYST Respiratory Rate 18 09/04/2018 9:58 AM CDT Oxygen Saturation 99% 12/25/2022 10:44 AM INSURANCE ANALYST Inhaled Oxygen Concentration - - Weight 58.7 kg (129 lb 6.6 oz) 12/25/2022 10:44 AM INSURANCE ANALYST Height 164 cm (5' 4.57) 12/25/2022 10:44 AM INSURANCE ANALYST Body Mass Index 21.82 12/25/2022 10:44 AM INSURANCE ANALYST Plan of Treatment Health Maintenance Due Date [...] Well Visit/Exam 18-64 2022 Covid-19 Vaccine ( - season) 2024 07/04/2021, 06/12/2021 Influenza Vaccine (#1) 2025 08/26/2019 Hepatitis B Screening Completed 09/14/2005 , 06/09/2005, 2004 Pneumococcal vaccine <65 Completed 006, 12/11/2005, 04/10/2005, Additional history exists Meningococcal Vaccine Aged Out No ingrid shawn eligible based on patient's age to complete this topic Insurance [facility]S [facility] Care Teams Edger Liner Relationship Specialty Start Date End Date Gigi Quiñonez MD PCP - General 03/13/18
[2025-07-26 15:00] VITALS: BP 112/75; PULSE 132; RESP 20; TEMP 36.6; O2SAT 98
[2025-07-26 17:33] VITALS: BP 103/72; PULSE 104; RESP 18; TEMP 36.7; O2SAT 94
[2025-07-26 19:29] VITALS: BP 141/78; PULSE 84; RESP 20; TEMP 36.5; O2SAT 99
[2025-07-26 19:40] VITALS: RESP 20; O2SAT 99
[2025-07-26 20:58] LABS: Influenza A QL RT-PCR Negative (Negative); Influenza B QL RT-PCR Negative (Negative); RSV RNA, RT-PCR Negative (Negative); SARS-CoV-2 RNA PCR Negative (Negative)
[2025-07-26] MEDS: SODIUM CHLORIDE 0.9% IV 1,000 ML 999 ML IV CONT (21:10)
[2025-07-26 21:14] VITALS: BP 129/80; PULSE 90; RESP 17; O2SAT 99
[2025-07-26 21:17] LABS: Hematocrit 39.9 % (37.0-47.0); Hemoglobin 13.4 g/dL (12.0-15.0); Immature Granulocyte Percent A 0.2 % (0-0.5); Lymphocytes Absolute Auto 2.07 K/mm3 (0.9-3.2); Mean Corpuscular HGB Conc 33.6 g/dl (32-36); Mean Corpuscular Hemoglobin 28.5 pg (26-34); Mean Corpuscular Volume 84.9 fl (80-100); Nucleated Red Blood Cells Absolute Auto 0.000 K/mm3 (0.0-0.012); Nucleated Red Blood Cells Perc 0.0 % (0.0-0.2); Platelet Count Result 187 k/mm3 (150-375); Red Blood Count 4.70 M/mm3 (4.2-5.4); White Blood Count 5.2 K/mm3 (4.5-10.0)
[2025-07-26 21:29] LABS: Alanine Aminotransferase 20 U/L (6-35); Albumin Level 4.3 g/dL (3.5-5.1); Alkaline Phosphatase 49 U/L (38-126); Anion Gap 10 mmol/L (4-12); Aspartate Amino Transferase 27 U/L (14-36); Bilirubin,Total 0.2 mg/dL (0.2-1.3); Blood Urea Nitrogen 8 mg/dL (7-17); Calcium 8.8 mg/dL (8.4-10.2); Carbon Dioxide 25 mmol/L (22-30); Chloride 102 mmol/L (98-107); Estimated CRCL calculation 87 ml/min; Estimated Glomerular Filt Rate > 60; Glucose 127 mg/dL (65-110); Potassium 3.7 mmol/L (3.4-5.0); Sodium 137 mmol/L (137-145); Total Protein 7.6 g/dL (6.3-8.2)
[2025-07-26 21:32] LABS: Negative Monotest Control Negative (Negative); Positive Monotest Control Positive (Positive)
--- NOTE | 2025-07-26 21:38 | ED.FEVER ---
HPI - Fever General Chief Complaint: Fever Stated Complaint: nausea x 1 week, fever, exhausted Time Seen by Provider: 07/26/25 18:24 Source: patient Mode of arrival: ambulatory Limitations: no limitations History of Present Illness HPI Narrative: Patient is a 19-year-old female who presents to the ED with report of URI symptoms. Patient reports she has been sick for the last 1.5 week with dry cough, congestion, rhinorrhea, sore throat, intermittent fevers, nausea with dry heaving, decreased appetite, fatigue. Has been taking Tylenol, dayquil, nyquil, Benadryl for symptoms with minimal relief. Reports today her heart rate was spiking well over 100 beats per minute with simple movements. She became concerned and prompted here for further evaluation. Patient denies known sick contacts, but recently was at a around numerous people. Denies chest pain, shortness of breath. Related Data Allergies Allergy/AdvReac Type Severity Reaction Status Date / Time sulfamethoxazole Allergy Intermediate HIVES Verified 07/23/25 15:27 trimethoprim Allergy Intermediate HIVES Verified 07/23/25 15:27 Review of Systems Review of Systems: All systems reviewed & are unremarkable except as noted in HPI. All systems reviewed & are unremarkable except as noted in HPI and below PMFSH Past Medical History Medical History Asthma Mood disorder Surgical History Surgical History History of placement of ear tubes History of adenoidectomy Social History Social History Social History: Single Smoking status: Never smoker Second hand tobacco smoke exposure: No Alcohol intake: never Substance use: never Substance use type: does not use Do You Feel Safe in your Home?: Yes Lack of Transportation: No Lack of Food: Never True Current Housing: I Have Housing Concerned About Future Housing: No Difficulty Paying Gas/Electric Bills: No Difficulty Paying for Meds: No Currently Unemployed: No Education: Don't Know Difficulty w/ Childcare or Family Care: No Living arrangements: with family Occupation/Education: occupation Additional occupation/education comments: [employer] Gender identity (if verbalized by the patient): Female Exam Narrative: GENERAL: Well appearing, well-nourished, non-toxic, in no acute distress. HEAD: Normocephalic, atraumatic. RESPIRATORY: Airway patent, respirations nonlabored. Clear to auscultation bilaterally, no rales, rhonchi, wheezing. No focal lung sounds. CARDIOVASCULAR: Borderline tachycardic with regular rhythm without murmurs, rubs, or gallops. MUSCULOSKELETAL: Moves all extremities. No gross deformities. SKIN: Warm, dry, normal color. NEURO: A&O X3. Speech clear. Cranial nerves II-XII grossly intact. Steady gait. No ataxic movements. PSYCHIATRIC: Appropriate mood and affect. Normal interaction. Course Vital Signs Vital signs: Vital Signs Temperature 97.8 F 07/26/25 15:00 Pulse Rate 132 H 07/26/25 15:00 Respiratory Rate 20 07/26/25 15:00 Blood Pressure 112/75 07/26/25 15:00 Pulse Oximetry 98 07/26/25 15:00 Oxygen Delivery Room Air 07/26/25 15:00 Temperature 97.7 F 07/26/25 19:29 Pulse Rate 90 07/26/25 22:02 Respiratory Rate 17 07/26/25 22:02 Blood Pressure 121/77 07/26/25 22:02 Pulse Oximetry 99 07/26/25 22:02 Oxygen Delivery Room Air 07/26/25 19:29 MDM - Fever MDM Narrative Medical decision making narrative: Patient presented to ED with URI symptoms for the past several days. Report of tachycardia today. Upon arrival to the ED, patient's heart rate was in the 130s. This was improved by the time of my evaluation, to 90s-100s. Vital signs are otherwise stable. Patient in no acute distress. Laboratory studies are unremarkable. No leukocytosis. No electrolyte derangement. Patient tested negative for mono, influenza, RSV, COVID. Chest x-ray interpreted by myself without evidence of focal consolidation. Patient given fluids. She is feeling improved upon re-evaluation. Heart rate normalized into 90s. Discussed likelihood of viral URI and continued management of such. Discussed jxmn-lyk-wuzzzvf therapies to use. Discussed close follow-up with PCP for further evaluation. Discussed return precautions. Patient in agreement with plan. Discharged in stable condition. Medical Records Attestation: I reviewed the patient's medical records. Lab Data Attestation: I reviewed the patient's lab results. 07/26/25 21:09 07/26/25 21:09 Labs: Lab Results 07/26/25 07/26/25 Range/Units 20:14 21:09 WBC 5.2 (4.5-10.0) K/mm3 RBC 4.70 (4.2-5.4) M/mm3 Hgb 13.4 (12.0-15.0) g/dL Hct 39.9 (37.0-47.0) % MCV 84.9 (80-100) fl MCH 28.5 (26-34) pg MCHC 33.6 (32-36) g/dl RDW 12.0 (11.5-14.5) % Plt Count 187 (150-375) k/mm3 MPV 10.6 H (7.4-10.4) fl Immature Gran % (Auto) 0.2 (0-0.5) % Neut % (Auto) 43.0 L (45.5-73.1) % Lymph % (Auto) 39.7 (18.3-44.2) % [place] % (Auto) 13.2 H (2.6-8.5) % Eos % (Auto) 3.5 (0-4.4) % Baso % (Auto) 0.4 (0.2-1.2) % Lymph # (Auto) 2.07 (0.9-3.2) K/mm3 [place] # (Auto) 0.7 H (0.1-0.6) K/mm3 Eos # (Auto) 0.2 (0-0.3) K/mm3 Baso # (Auto) 0.0 (0.0-0.1) K/mm3 Abs Immat Gran (auto) 0.01 (0.00-0.031) K/mm3 Absolute Neuts (auto) 2.2 (1.3-6.7) K/mm3 Absolute Nucleated RBC 0.000 (0.0-0.012) K/mm3 Nucleated RBC % 0.0 (0.0-0.2) % Sodium 137 (137-145) mmol/L Potassium 3.7 (3.4-5.0) mmol/L Chloride 102 (98-107) mmol/L Carbon Dioxide 25 (22-30) mmol/L Anion Gap 10 (4-12) mmol/L BUN 8 (7-17) mg/dL Creatinine 0.81 (0.7-1.0) mg/dL Estim Creat Clear Calc 87 ml/min Estimated GFR > 60 (59 - ) Glucose 127 H (65-110) mg/dL Calcium 8.8 (8.4-10.2) mg/dL Total Bilirubin 0.2 (0.2-1.3) mg/dL AST 27 (14-36) U/L ALT 20 (6-35) U/L Alkaline Phosphatase 49 (38-126) U/L Total Protein 7.6 (6.3-8.2) g/dL Albumin 4.3 (3.5-5.1) g/dL Monoscreen Negative (Negative) Influenza A (RT-PCR) Negative (Negative) Influenza B (RT-PCR) Negative (Negative) RSV (RT-PCR) Negative (Negative) SARS-CoV-2 RNA (RT-PCR) Negative (Negative) Imaging Data Attestation: I personally reviewed and interpreted this imaging study as follows: My impression: CXR: No acute cardiopulmonary disease. Discharge Plan Discharge Clinical Impression: Acute upper respiratory infection, Nausea Cough Qualifiers: Cough type: acute Qualified Code(s): R05.1 - Acute cough Patient Disposition: Home Condition: Stable Instructions: Antibiotic Form, Upper Respiratory Infection (ED), Viral Syndrome (ED) Additional Instructions: You tested negative for mono, influenza, RSV, COVID. You likely have a viral upper respiratory infection. Your symptoms should resolve on their own. Stay well-hydrated at home. Recommend electrolyte rich fluids, Gatorade, Pedialyte, body armor. Zofran as needed for nausea. Tessalon Perles as needed for cough. Continue hhgq-nid-urgfvkc Tylenol and Ibuprofen for discomfort and/or fevers. Recommend gejt-jmn-jctomjl cough and cold medicines for symptom relief, Delsym, Mucinex, DayQuil, NyQuil, Sudafed, Robitussin, TheraFlu. Follow with primary care doctor upon resolution of symptoms. Return to the ED if you experience chest pain, difficulty breathing, unable to keep down food or drink, severe pain, or any other symptoms of concern. Patient Language: Pashto Prescriptions: New benzonatate 200 mg capsule 200 mg PO TID PRN (Reason: cough) Qty: 15 0RF ondansetron 4 mg tablet,disintegrating 4 mg PO Q8H PRN (Reason: nausea and vomiting) Qty: 15 0RF No Action albuterol sulfate 90 mcg/actuation HFA aerosol inhaler 1 puff INHALATION Q4-6H PRN (Reason: shortness of breath or wheezing) Qty: 6.7 0RF norgestimate-ethinyl estradiol [Estarylla] 0.25-0.035 mg tablet 1 tablet PO DAILY Qty: 84 3RF Follow-up/Referrals: Elroy Horn MD [Primary Care Provider, Family Practice] Time of Disposition: 22:05
[2025-07-26 22:02] VITALS: BP 121/77; PULSE 90; RESP 17; O2SAT 99
== END 2025-07-26 22:18 | disposition home or self-care (01) ==
PROVIDERS: Emergency Provider Physician Assistant; PCP Family Medicine
DX: J06.9 Acute upper respiratory infection, unspecified (principal); R05.1 Acute cough; Z20.822 Contact with and (suspected) exposure to COVID-19; J45.909 Unspecified asthma, uncomplicated
CPT/HCPCS: 36415; 71046; 80053; 85025; 86308; 87637; 96360; 99283; J7030